=== PATIENT | male | born 2000 | race Caucasian/White ===

== ENCOUNTER 2023-01-06 10:02 | Outpatient (RCR) | payer BC, SELFPAY | END 2023-04-09 10:11 | disposition home or self-care (01) | PROVIDERS: PCP Internal Medicine; Visit Provider Family Medicine | DX: M25.562 Pain in left knee (principal); R26.9 Unspecified abnormalities of gait and mobility; Z51.89 Encounter for other specified aftercare; M62.81 Muscle weakness (generalized) | CPT/HCPCS: 97110; 97161 ==

== ENCOUNTER 2023-01-06 14:28 | Outpatient (CLI) | payer BC, SELFPAY ==
--- NOTE | 2023-01-06 14:30 | CRLHL7_ITS ---
For Patients: As a result of the Century Cures Act, medical imaging exams and procedure reports are released immediately into your electronic medical record. You may view this report before your referring provider. If you have questions, please contact your health care provider. HISTORY: Left knee pain. TECHNIQUE: Noncontrast MRI left knee. COMPARISON: Radiographs 12/11/2022. FINDINGS: Medial compartment: Medial meniscus: Intact. Articular cartilage: Maintained. - Lateral compartment: Lateral meniscus: Intact. Articular cartilage: Maintained. - Patellofemoral compartment: The articular cartilage is maintained. - Ligaments: The anterior and posterior cruciate ligaments are intact. Medial collateral ligament is intact. Lateral collateral complex intact. - Extensor mechanism: Distal quadriceps tendon and patellar tendon are intact. The medial and lateral patellar restraints are intact. There is no patellar subluxation. No patella simone. The trochlea appears normally formed. Tibial tubercle-trochlear groove distance is approximately 6 mm which is normal. - Joint space: There is a large knee joint effusion. Fluid distention of the popliteus tendon sheath is present. - Bones and soft tissues: There is no acute fracture or avascular necrosis. No osteomyelitis. Small amount of fluid within the semimembranosus/MCL bursa. Trace popliteal cyst. No soft tissue mass. IMPRESSION: 1. Large knee joint effusion. Differential considerations may include inflammatory or crystalline arthropathy, infection or occult internal derangement of the left knee. 2. There is no meniscal tear, focal articular cartilage defect or ligament disruption. Dictated by Bruce Avila MD @ 01/07/2023 12:59:03 PM (Electronically Signed)
== END 2023-01-06 14:29 | disposition home or self-care (01) ==
PROVIDERS: PCP Internal Medicine; Visit Provider Internal Medicine
DX: M25.562 Pain in left knee (principal); M25.462 Effusion, left knee
CPT/HCPCS: 73721; 97110; 97161

== ENCOUNTER 2023-01-20 15:27 | Outpatient (CLI) | payer BC, SELFPAY ==
[2023-01-20 16:48] LABS: BF Clarity* Cloudy; BF Color Xanthochromic; BF Total Volume* 10; Mononuclear WBC Body Fluid* 22 %; Polynuclear WBC Body Fluid* 78 %; RBC, Body Fluid* 2000 Cells/uL; WBC, Body Fluid* 22657 Cells/uL
== END 2023-01-20 15:28 | disposition home or self-care (01) ==
PROVIDERS: PCP Internal Medicine; Visit Provider Orthopaedic Surgery
DX: M25.462 Effusion, left knee (principal); M25.562 Pain in left knee
CPT/HCPCS: 87070; 87075; 87205; 89051; 89060

== ENCOUNTER 2023-01-21 11:50 | Outpatient (CLI) | payer BC, SELFPAY | END 2023-01-21 11:51 | disposition home or self-care (01) | PROVIDERS: PCP Internal Medicine; Referring Provider Internal Medicine; Visit Provider Internal Medicine | DX: M25.462 Effusion, left knee (principal); M25.569 Pain in unspecified knee | CPT/HCPCS: 86140; 86618 ==